=== PATIENT | male | born 1965 | race Asian ===

== ENCOUNTER 2022-07-08 11:55 | Emergency (ER) | payer MEDICARE, MEDICAID ==
[~2022-07-08] VITALS: Ht 160 cm; Wt 70.9 kg
[2022-07-08 12:20] VITALS: BP 155/76
[2022-07-08] MEDS ORDERED: SULF1TAB45 PO (13:24)
[2022-07-08] MEDS ORDERED: MUPI22OI30 TOP (13:24)
[2022-07-08] MEDS ORDERED: sulfamethoxazole/trimethoprim DS (800/160mg) tablet PO ONE (13:30)
== END 2022-07-08 13:41 | disposition home or self-care (01) ==
LOC: ER 11:59
DX: E11.621 Type 2 diabetes mellitus with foot ulcer (principal); L97.529 Non-pressure chronic ulcer of other part of left foot with unspecified severity; Z98.890 Other specified postprocedural states; Z72.89 Other problems related to lifestyle; Z79.2 Long term (current) use of antibiotics; Z79.899 Other long term (current) drug therapy
CPT/HCPCS: 82948; 99283